=== PATIENT | male | born 1985 | race Caucasian/White ===

== ENCOUNTER 2022-11-18 22:52 | Emergency (ER) | payer OTHER ==
[~2022-11-18] VITALS: Ht 172.7 cm; Wt 95.3 kg
[2022-11-18 22:58] VITALS: BP_SYST 143
[2022-11-19 00:05] VITALS: BP_SYST 143
== END 2022-11-19 00:05 | disposition home or self-care (01) ==
LOC: SED 22:52
DX: Z02.89 Encounter for other administrative examinations (principal); I10 Essential (primary) hypertension; Z79.899 Other long term (current) drug therapy
CPT/HCPCS: 99283